=== PATIENT | female | born 1980 | race Caucasian/White ===

== ENCOUNTER 2017-03-12 15:22 | Outpatient (CLI) | payer OTHER ==
[2015-01-02 12:01] VITALS: BMI 21.9
[2017-03-12 15:40] LABS: BASOPHILS # (AUTO) 0.1 K/uL (0-0.2); EOSINOPHILS % (AUTO) 0.4 % (0.0-7.0); HEMATOCRIT 37.8 % (37.0-47.0); HEMOGLOBIN 12.7 g/dl (12.0-16.0); IMMATURE GRANULOCYTE % (AUTO) 0.1 % (0.0-5.0); LYMPHOCYTES # (AUTO) 1.6 K/uL (0.60-3.4); LYMPHOCYTES % (AUTO) 23.2 (10.0-50.0); MEAN CORPUSCULAR HEMOGLOBIN 28.9 pg (27.0-31.0); MEAN CORPUSCULAR HGB CONC 33.6 (31.8-35.4); MEAN CORPUSCULAR VOLUME 86.1 fl (81.0-99.0); MONOCYTES # (AUTO) 0.4 K/uL (0.4-2.0); MONOCYTES % (AUTO) 6.1 (0-10); NEUTROPHILS # (AUTO) 4.6 K/ul (2.0-6.9); NEUTROPHILS % (AUTO) 69.2; PLATELET COUNT 317 10^3/uL (140-440); RED BLOOD COUNT 4.39 10^6/ul (4.20-5.40); WHITE BLOOD COUNT 6.67 K/ul (4.6-10.2)
[2017-03-12 15:59] LABS: ALBUMIN 4.1 g/dL (3.4-5.0); ALBUMIN/GLOBULIN RATIO 1.32; BILIRUBIN,TOTAL 0.39 mg/dL (0.00-1.20); BUN/CREATININE RATIO 13.04; CALCIUM 9.4 mg/dL (8.2-10.2); CREATININE 0.69 mg/dL (0.60-1.30); TOTAL PROTEIN 7.2 g/dL (6.4-8.2)
[2017-03-14 07:43] LABS: CANCER ANTIGEN 27.29 14.6 U/mL (0.0-38.6); CARCINOEMBRYONIC ANTIGEN 2.1 ng/mL (0.0-4.7)
== END 2017-03-12 15:23 | disposition home or self-care (01) ==
LOC: LAB 15:22
PROVIDERS: ATTEND Internal Medicine Hematology & Oncology
DX: Z85.3 Personal history of malignant neoplasm of breast (principal)
CPT/HCPCS: 36415; 80053; 82378; 85025; 86300

== ENCOUNTER 2017-10-22 08:37 | Outpatient (CLI) ==
[2015-01-02 12:01] VITALS: BMI 21.9
[2017-10-22 09:05] LABS: BASOPHILS # (AUTO) 0.1 K/uL (0-0.2); BASOPHILS % (AUTO) 1.7 % (0.0-3.0); EOSINOPHILS # (AUTO) 0.1 K/ul (0.0-0.7); EOSINOPHILS % (AUTO) 1.7 % (0.0-7.0); HEMATOCRIT 36.1 % (37.0-47.0); HEMOGLOBIN 12.2 g/dl (12.0-16.0); IMMATURE GRANULOCYTE % (AUTO) 0.5 % (0.0-5.0); LYMPHOCYTES # (AUTO) 1.7 K/uL (0.60-3.4); LYMPHOCYTES % (AUTO) 28.6 (10.0-50.0); MEAN CORPUSCULAR HEMOGLOBIN 29.5 pg (27.0-31.0); MEAN CORPUSCULAR HGB CONC 33.8 (31.8-35.4); MEAN CORPUSCULAR VOLUME 87.2 fl (81.0-99.0); MONOCYTES # (AUTO) 0.5 K/uL (0.4-2.0); MONOCYTES % (AUTO) 8.6 (0-10); NEUTROPHILS # (AUTO) 3.5 K/ul (2.0-6.9); NEUTROPHILS % (AUTO) 58.9; PLATELET COUNT 299 10^3/uL (140-440); RED BLOOD COUNT 4.14 10^6/ul (4.20-5.40)
[2017-10-22 09:30] LABS: ALBUMIN 3.5 g/dL (3.4-5.0); ALBUMIN/GLOBULIN RATIO 1.13; ANION GAP 11.7; BILIRUBIN,TOTAL 0.2 mg/dL (0.00-1.20); BUN/CREATININE RATIO 15.87; CALCIUM 9.1 mg/dL (8.2-10.2); CREATININE 0.63 mg/dL (0.60-1.30); POTASSIUM 3.7 mmol/L (3.5-5.10); TOTAL PROTEIN 6.6 g/dL (6.4-8.2)
[2017-10-23 06:11] LABS: CANCER ANTIGEN 27.29 11.2 U/mL (0.0-38.6)
[2017-10-23 08:13] LABS: CARCINOEMBRYONIC ANTIGEN 1.8 ng/mL (0.0-4.7)
== END 2017-10-22 08:38 | disposition home or self-care (01) ==
LOC: LAB 08:37
PROVIDERS: ATTEND Internal Medicine Hematology & Oncology
DX: C50.911 Malignant neoplasm of unspecified site of right female breast (principal)
CPT/HCPCS: 36415; 80053; 82378; 85025; 86300

== ENCOUNTER 2018-02-03 08:41 | Emergency (ER) ==
[2018-02-03 08:54] VITALS: BP 120/77; TEMP 99.3; BMI 22.8
[2018-02-03] MEDS ORDERED: ZITHROMAX PO STA (10:04)
[2018-02-03] MEDS ORDERED: TUSSIONEX PO STA (10:04)
[2018-02-03] MEDS ORDERED: PREDNISONE PO STA (10:04)
[2018-02-03] MEDS ORDERED: ROCEPHIN IM STA (10:05)
[2018-02-03] MEDS ORDERED: LIDOCAINE HCL 1% SDV IM STA (10:05)
[2018-02-03] MEDS ORDERED: DUONEB NEB STA (10:05)
--- NOTE | 2018-02-03 10:56 | CT ---
EXAM: Noncontrast CT of the chest HISTORY: Cough, chest pain COMPARISON: None available. TECHNIQUE: Noncontrast CT of the chest FINDINGS: There are minimal left lower lobe patchy ground-glass densities with the most conspicuous opacity coleen suring 5 mm on axial image 48. A few calcified granulomas are seen The lungs are otherwise clear. No pneumothorax or pleural effusion is seen. Heart size is normal. No mediastinal lymphadenopathy is seen. Breast implants are noted. The gallbladder has been removed. There is a 2 mm right renal nonobstruc ting calculus. IMPRESSION: Minimal left lower lobe patchy ground-glass nodularity, favored to be infectious in etiology. Follow -up CT after treatment is recommended to document resolution and exclude ground-glass pulmonary nodul es. Right renal nonobstructing calculus.
--- NOTE | 2018-02-03 11:26 | ED.PDOC ---
General ED Provider: Dr. CORINNA ROSA Chief Complaint: Respiratory Complaint Stated Complaint: flu like symptoms Time Seen by Physician: 08:46 (no resp distress) Mode of Arrival: Walk-In Information Source: Patient Exam Limitations: No limitations Primary Care Provider: STAS BARON Nursing and Triage Documentation Reviewed and Agree: Yes Reviewed sepsis parameters & appropriate labs ordered?: Yes System Inflammatory Response Syndrome: Not Applicable Sepsis Protocol: For patient's 13 years and over: Temp is 96.8 and below OR 101 and greater Pulse >90 BPM Resp >20/minute Acutely Altered Mental Status Are patient's symptoms suggestive of a new infection, such as: -Pneumonia -Skin, Soft Tissue -Endocarditis -UTI -Bone, Joint Infection -Implantable Device -Acute Abdominal Infection -Wound Infection -Meningitis -Blood Stream Catheter Infection -Unknown System Inflammatory Response Syndrome: Not Applicable Respiratory Complaint Exam - Respiratory Complaint/Exam Onset/Duration: 1 week Symptoms Are: Still present Timing: Intermittent Initial Severity: Moderate Current Severity: Mild Location: Nose, Throat, Chest Character: Reports: Non-productive cough Aggravating: Reports: URI Alleviating: Reports: Bronchodilators, Spontaneous resolution Associated Signs and Symptoms: Reports: URI, Nasal congestion Related History: Reports: Similar episode History of Healthcare-Acquired Pneumonia: No Related Surgical History: Reports: None Pulmonary Embolism Risk Factors: None Cardiac Risk Factors: Reports: None Pseudomonas Risk Factors: Reports: None Tuberculosis Risk Factors: Reports: None Status Asthmaticus Risk Factors: Reports: None Home Oxygen Use: No Recent Stress Test: No Recent Echo/LV Function: No Current Antibiotic Use: No Current Asthma Medication Use: No Respiratory Distress: None Inadequate Respiratory Effort: No Dysphagia Present: No Stridor Present: No JVD Present: No Accessory Muscle Use: No Retractions: Not Present Diminished Breath Sounds: No Sinus Tenderness: None Grunting Respirations: No Kussmaul Respirations: No Differential Diagnoses: Pneumonia, Bronchitis, URI, Lower Resp. Infection Review of Systems - Review Of Systems Constitutional: Reports: Malaise Eyes: Reports: No symptoms Ears, Nose, Mouth, Throat: Reports: No symptoms Respiratory: Reports: Cough Cardiac: Reports: No symptoms GI: Reports: No symptoms : Reports: No symptoms Musculoskeletal: Reports: No symptoms Skin: Reports: No symptoms Neurological: Reports: No symptoms Endocrine: Reports: No symptoms Hematologic/Lymphatic: Reports: No symptoms All Other Systems: Reviewed and Negative Past Medical History - Past Medical History Previously Healthy: Yes Endocrine: Reports: None Cardiovascular: Reports: None Respiratory: Reports: None Hematological: Reports: None Gastrointestinal: Reports: None Genitourinary: Reports: None Neuro/Psych: Reports: None Musculoskeletal: Reports: None Cancer: Reports: None Last Menstrual Period: hysterectomy - Surgical History General Surgical History: Reports: None - Family History Family History: Reports: None - Social History Smoking Status: Never smoker Hx Substance Use: No Alcohol Screening: None Physical Exam - Physical Exam Appearance: Ill-appearing Ill-appearing: Mild Pain Distress: Mild Eyes: ROSSANA, EOMI, Conjunctiva clear ENT: Ears normal, Nose normal, Oropharynx normal Respiratory: Rhonchi, Wheezes Cardiovascular: RRR, Pulses normal, No rub, No murmur GI/: Soft, Nontender, No masses, Bowel sounds normal, No Organomegaly Musculoskeletal: Normal strength, ROM intact, No edema, No calf tenderness Skin: Warm, Dry, Normal color Neurological: Sensation intact, Motor intact, Reflexes intact, Cranial nerves intact, Alert, Oriented Psychiatric: Affect appropriate, Mood appropriate Interpretation - Radiology Interpretation Radiology Interpretation By: Radiologist Radiology Results: No acute changes Critical Care Note - Critical Care Note Total Time (mins): 0 Course - Course Hematology/Chemistry: 02/03/18 10:08 02/03/18 10:08 Orders, Labs, Meds: Lab Review 02/03/18 02/03/18 02/03/18 10:08 10:08 10:08 WBC 10.56 H RBC 4.41 Hgb 12.7 Hct 38.2 MCV 86.6 MCH 28.8 MCHC 33.2 RDW Coeff of Sonia 14.7 Plt Count 274 Immature Gran % (Auto) 0.4 Neut % (Auto) 78.4 Lymph % (Auto) 10.5 Osborne % (Auto) 8.2 Eos % (Auto) 1.6 Baso % (Auto) 0.9 Immature Gran # (Auto) 0.0 Neut # (Auto) 8.3 H Lymph # (Auto) 1.1 Osborne # (Auto) 0.9 Eos # (Auto) 0.2 Baso # (Auto) 0.1 Sodium 142 Potassium 3.9 Chloride 106 Carbon Dioxide 26 Anion Gap 13.9 BUN 5 L Creatinine 0.63 Estimated GFR (MDRD) 105.00 BUN/Creatinine Ratio 7.93 Glucose 92 Calcium 9.2 Total Bilirubin 0.2 AST 14 L ALT 14 Alkaline Phosphatase 64 Total Protein 6.8 Albumin 3.8 Globulin 3.0 Albumin/Globulin Ratio 1.27 Serum , Qual Negative Orders Category Date Time Status NEBULIZER TREATMENT Stat CARDIO 02/03/18 10:05 Completed CBC W/ AUTO DIFF Stat LAB 02/03/18 10:08 Completed COMPREHENSIVE METABOLIC PANEL Stat LAB 02/03/18 10:08 Completed FLU A/B MOLECULAR Stat LAB 02/03/18 10:30 Received MOLECULAR GROUP A STREP Stat LAB 02/03/18 10:30 Received SERUM Stat LAB 02/03/18 10:08 Completed Azithromycin [Zithromax] MEDS 02/03/18 10:04 Discontinued 1,000 mg PO ONCE STA Ceftriaxone Sodium [Rocephin] MEDS 02/03/18 10:05 Discontinued 1 gm IM ONCE STA Hydrocodone/Chlorphen Polis [Tussionex] MEDS 02/03/18 10:04 Discontinued 5 ml PO ONCE STA Ipratropium/Albuterol Neb [Duoneb] MEDS 02/03/18 10:05 Discontinued 1 vial NEB ONCE STA Lidocaine HCl/Pf [Lidocaine HCl 1% Sdv] MEDS 02/03/18 10:05 Discontinued 2.1 ml IM ONCE STA Prednisone MEDS 02/03/18 10:04 Discontinued 40 mg PO ONCE STA CT CHEST W/O CONTRAST Stat RADS 02/03/18 10:01 Completed Medications Discontinued Medications Generic Name Dose Route Start Last Admin Trade Name Freq PRN Reason Stop Dose Admin Albuterol/Ipratropium 1 vial 02/03/18 10:05 02/03/18 10:23 Duoneb NEB 02/03/18 10:06 1 vial ONCE STA Administration Azithromycin 1,000 mg 02/03/18 10:04 Zithromax PO 02/03/18 10:05 ONCE STA Ceftriaxone Sodium 1 gm 02/03/18 10:05 Rocephin IM 02/03/18 10:06 ONCE STA Chlorphenir/Hydrocodone Polistirex 5 ml 02/03/18 10:04 02/03/18 11:01 Tussionex PO 02/03/18 10:05 5 ml ONCE STA Administration Lidocaine HCl 2.1 ml 02/03/18 10:05 Lidocaine Hcl 1% Sdv IM 03/11/18 10:06 ONCE STA Prednisone 40 mg 03/11/18 10:04 02/03/18 10:59 Prednisone PO 02/03/18 10:05 40 mg ONCE STA Administration Vital Signs: Temp Pulse Resp BP Pulse Ox 02/03/18 08:42 99.3 F 93 H 20 120/77 100 Departure - Departure Time of Disposition: 11:25 Disposition: HOME SELF-CARE Discharge Problem: Cough, Viral syndrome Condition: Good Pt referred to PMD for follow-up: Yes IPMP verified?: No Additional Instructions: Please call your Family Physician as soon as possible to schedule a follow-up appointment. Allergies/Adverse Reactions: Allergies codeine Adverse Reaction (Verified 02/03/18 08:55) vancomycin Adverse Reaction (Verified 02/03/18 08:55) Home Medications: Ambulatory Orders Alprazolam [Xanax] 0.5 mg PO TID 11/11/14 Dextroamphetamine/Amphetamine [Adderall 15 mg Tablet] 15 mg PO BID 11/11/14 Tamoxifen Citrate 20 mg PO DAILY 11/11/14 Venlafaxine HCl [Effexor] 75 mg PO DAILY 11/11/14
== END 2018-02-03 12:06 | disposition home or self-care (01) ==
LOC: ED 08:41
DX: R05 Cough (principal); B34.9 Viral infection, unspecified
CPT/HCPCS: 36415; 80053; 84703; 85025; 87502; 87651; 94640; 99283

== ENCOUNTER 2018-04-19 09:08 | Outpatient (CLI) | payer OTHER | END 2018-04-19 09:09 | disposition home or self-care (01) | LOC: LAB 09:08 | PROVIDERS: ATTEND Internal Medicine Hematology & Oncology | DX: C50.911 Malignant neoplasm of unspecified site of right female breast (principal) | CPT/HCPCS: 36415; 80053; 82378; 85025; 86300 ==

== ENCOUNTER 2018-12-13 09:00 | Outpatient (RCR) ==
[2018-11-13 10:39] VITALS: BMI 24.4
--- NOTE | 2018-12-09 08:44 | RS.OPPTEV2 ---
Date of Note: 12/06/18 Visit #: 1 Number of visits approved by Insurance: n/a Date of Evaluation: 12/06/18 Payer Source: MEDICARE Surgery Performed?: No Treatment Diagnosis: chronic nonintractable headache History of Condition/Mechanism of Injury:: pt reports that her pain began . pt states had an almost constant headache for 2 1/2 weeks. pt reports no h/ a since 11/25 still with neck discomfort. Prior Level of Function.....Patient was independent with: ADL's, Self Care, Caregiving, Ambulation/Mobility, Community Integration/Access Functional Limitations: Reaching, Pushing, Pulling, Lifting, Carrying Current Subjective/complaints:: pt reports that she has had this happen before with muscle tightness in her neck and headache and came for therapy. pt reports that traction helped last time. Treatment Side (optional): N/A *Precautions: no electrical modalities due to h/o breast cancer. Medical History Medical History: Cancer (breast) Surgical History: Cholecystectomy, Hysterectomy, Mastectomy (bilateral mastectomy with multiple reconstructive surgeries. ) Smoking Status: Never smoker Hx Home Medications: flexeril, adderal, effexor, remeron Patient's Goals: decrease muscle tightness Pain Assessment - Pain Description Pain Location: cervical spine and headache with pain in L upper trap and medial scapula. Current Pain Intensity: 1-2 at rest Functional Outcome Measure Other: pt with difficulty answering functional index questions. pt with constant talking. - G Codes & Severity Modifier G Codes & Modifier: n/a Source of G Code score: n/a Observation - Observation Posture: Forward Head, Rounded Shoulders Handedness: Right Gait - Gait Pattern General Gait Pattern Observation: No Deviations/Normal General Range of Motion: BUE WFL's. BLE WFL's Muscle Strength: BUE 5/5. BLE 5/5 - ROM Cervical Spine Range of Motion Limitations: Soft Tissue Tightness, Muscle Weakness, Pain Comments: cervical ROM WFL's with increased pain with flex. - Strength Cervical Extension: 4 Good Cervical Flexion: 4- Good- Cervical Lateral Flexion: 4- Good- Cervical Rotation: 4- Good- - Special Tests Foraminal Distraction: Negative Foraminal Compression: Negative Left, Negative Right Palpation Palpation Findings: Tenderness, Trigger Point, Muscle Guarding Comments:: pt with tenderness and trigger points noted in L upper trap and L medial scapula Sensation - Sensation Right Upper Extremity: Impaired (n/t RUE since axillary dissection) Left Upper Extremity: Intact/Normal Right Lower Extremity: Intact/Normal Left Lower Extremity: Intact/Normal Balance - Sitting Balance Static Sitting Balance: Normal Dynamic Sitting Balance: Normal - Standing Balance Static Standing Balance: Normal Dynamic Standing Balance: Normal - Traction Treatment Method: Mechanical Patient Position: Supine Amount of Force Applied: 12lbs Hold Time: 30secs Rest Time: 10secs Duration of treatment: 12 mins Interventions - Exercise/Activities/Manual Therapy Exercises/Activities: pt performed cervical retraction x 5, upper trap and levator stretch, scapular retraction Manual Therapy: n/a HOME EXERCISE PROGRAM: pt given written HEP including cervical retraction, corner stretch, upper trap stretch, scapular retraction - Charges Timed Code Treatment Minutes: 58 Total Treatment Time: 64 Procedures billed for this date of service:: eval low ,mechanical traction EVALUATION COMPLEXITY LEVEL EVALUATION COMPLEXITY LEVEL: HISTORY: Low (breast CA, cervical pain), EXAM OF BODY SYSTEMS: Low (pain, muscle tightness, trigger points, MCCARTNEY), CLINICAL PRESENTATION: Medium, CLINICAL DECISION MAKING: Low Assessment Assessment: pt presents with discomfort in cervical spine in area of L upper trap and L medial scapula. pt with trigger points noted in L upper trap and medial scapula with H/A associated. pt also with decreased cervical lordosis and forward head posture. Patient Education: Home Exercise Program, Education of Plan of Care Rehab Potential: Good Short Term Goals Goal #1: pt independent with initial HEP. Goal to be met by: 12/20/18 Goal #2: pt with decreased tenderness to L upper trap Goal to be met by: 12/20/18 Goal #3: pt to have no report of pain with cervical flex. Goal to be met by: 12/20/18 Chassis Mechanic Goals Goal #1: pt with no reports of H/A associated with cervical tightness Goal to be met by: 01/03/19 Goal #2: pt with improved flexibility L upper trap Goal to be met by: 01/03/19 Goal #3: No trigger points noted in L upper trap and medial scapula Goal to be met by: 01/03/19 Plan - Treatment to be Provided Procedures: Therapeutic Exercises, Manual Therapy, Massage, Patient Education Modalities: Cryotherapy, Hot Packs, Mechanical Traction - Treatment Plan Frequency: 2-3x a week Duration: 4 weeks Dates of Senior Care Goals: 01/03/19 Expiration date of current Insurance Approval:: n/a - Treatment Code (1) Chronic nonintractable headache Code(s): R51 - HEADACHE Qualifiers: Headache type: unspecified Qualified Code(s): R51 - Headache (2) Cervical pain Code(s): M54.2 - CERVICALGIA (3) Muscle tightness Code(s): M62.89 - OTHER SPECIFIED DISORDERS OF MUSCLE
--- NOTE | 2018-12-09 09:57 | RS.OPPTDN ---
Subjective Date of Note: 12/09/18 Visit #: 2 Number of visits approved by Insurance: NA Date of Evaluation: 12/06/18 Payer Source: MEDICARE Treatment Diagnosis: chronic nonintractable headache Current Subjective/complaints:: Patient reports tightness in the cervical region ,but no pain today. *Precautions: no electrical modalities due to h/o breast cancer. Pain Assessment - Pain Description Pain Location: cervicakl/UT's Pain Description: Tightness Current Pain Intensity: 0 - Heat/Cryotherapy Treatment: Hot Pack (20 mins. prior toexercise and traction) - Traction Treatment Method: Mechanical, Intermittent, Cervical Patient Position: Supine Amount of Force Applied: 13 Hold Time: 30 secs. Rest Time: 5 secs. Duration of treatment: 15 mins. Interventions - Exercise/Activities/Manual Therapy Exercises/Activities: 15 mins. total for chin tucks ,cervical retraction,UT stretch,lateral flexion,instruction for posture /body mechanics. Total minutes of Exercise: 15 Manual Therapy: n/a Total minutes of Manual Therapy: 0 HOME EXERCISE PROGRAM: pt given written HEP including cervical retraction, corner stretch, upper trap stretch, scapular retraction - Charges Timed Code Treatment Minutes: 30 Total Treatment Time: 50 Procedures billed for this date of service:: hp,ex,traction Assessment: Patient has good understanding of cervical/postural exercises,has stretch discomfort only ,no pain during the exercises.She reports the traction gives her relief.She does present with forward head posture at rest.We discussed making her home environment adaptable to whatever activity she is doing. Patient Education: Education of diagnosis, Body/Joint mechanics, Home Exercise Program, Home Safety, Activity Modification, Education of Plan of Care Patient demonstrates compliance with HEP?: Yes Short Term Goals Goal #1: pt independent with initial HEP. Goal to be met by: 12/20/18 Progress towards Goal:: Progressing Goal #2: pt with decreased tenderness to L upper trap Goal to be met by: 12/20/18 Goal #3: pt to have no report of pain with cervical flex. Goal to be met by: 12/20/18 Progress towards Goal:: Progressing Unemployment Inspector Goals Goal #1: pt with no reports of H/A associated with cervical tightness Goal to be met by: 01/03/19 Goal #2: pt with improved flexibility L upper trap Goal to be met by: 01/03/19 Goal #3: No trigger points noted in L upper trap and medial scapula Goal to be met by: 01/03/19 Plan Dates of Senior Care Goals: 01/03/19 Expiration date of current Insurance Approval:: NA PLAN: Cont. skilled PT to return patient to PLOF,no cervical pain and normal cervical ROM.
--- NOTE | 2018-12-13 09:56 | RS.OPPTDN ---
Subjective Date of Note: 12/13/18 Visit #: 3 Number of visits approved by Insurance: NA Date of Evaluation: 12/06/18 Payer Source: MEDICARE Treatment Diagnosis: chronic nonintractable headache Current Subjective/complaints:: Reports the cervical area is tight with dull ache that is always present ,but no elevated pain today.She reports doing her stretches several times per day. *Precautions: no electrical modalities due to h/o breast cancer. Pain Assessment - Pain Description Pain Location: cervical Pain Description: Dull, Aching, Chronic Current Pain Intensity: 0 - Heat/Cryotherapy Treatment: Hot Pack (20 mins. prior to ex and traction) - Traction Treatment Method: Mechanical, Intermittent, Cervical Patient Position: Supine Amount of Force Applied: 15 Hold Time: 30 secs. Rest Time: 5 seccs. Duration of treatment: 20 mins. Traction Treatment Comment: Tolerates well. Interventions - Exercise/Activities/Manual Therapy Exercises/Activities: Reviewed HEP of chin tucks ,cervical retraction,UT stretch ,lateral flexion,instruction for posture /body mechanics. Total minutes of Exercise: 0 Manual Therapy: n/a HOME EXERCISE PROGRAM: pt given written HEP including cervical retraction, corner stretch, upper trap stretch, scapular retraction - Charges Timed Code Treatment Minutes: 20 Total Treatment Time: 40 Procedures billed for this date of service:: hp,traction Assessment: Patient progressing ,reports mostly stiffness today,no headache or elevation of cervical pain during treatment. Patient Education: Education of diagnosis, Body/Joint mechanics, Home Exercise Program, Home Safety, Activity Modification, Education of Plan of Care Patient demonstrates compliance with HEP?: Yes Short Term Goals Goal #1: pt independent with initial HEP. Goal to be met by: 12/20/18 Progress towards Goal:: Partially Met (Has good understanding of cervical stretches ,will focus more on posture when sitting) Goal #2: pt with decreased tenderness to L upper trap Goal to be met by: 12/20/18 Progress towards Goal:: Progressing Goal #3: pt to have no report of pain with cervical flex. Goal to be met by: 12/20/18 Progress towards Goal:: Progressing Director Of Respiratory Therapy Goals Goal #1: pt with no reports of H/A associated with cervical tightness Goal to be met by: 01/03/19 Progress towards goal: Progressing (No headache today ,but not yet consistent) Goal #2: pt with improved flexibility L upper trap Goal to be met by: 01/03/19 Goal #3: No trigger points noted in L upper trap and medial scapula Goal to be met by: 01/03/19 Plan Dates of Director Of Respiratory Therapy Goals: 01/03/19 Expiration date of current Insurance Approval:: NA PLAN: Cont. skilled PT to reduce /eliminate hedaches and cervical pain.
--- NOTE | 2018-12-17 08:54 | RS.CXNS ---
Date of scheduled appointment: 12/17/18 Type: Cancel Reason for Cancel/NS: Patient called and cancelled both appts. this week,sick today .Patient also states that she feels that she will probably be sicker on Sunday.
--- NOTE | 2018-12-30 10:12 | RS.OPPTDC ---
Date of Discharge: 12/13/18 Date of Evaluation: 12/06/18 Number of Visits: 3 Treatment Diagnosis: chronic nonintractable headache Current Level of Function: pt reports she is doing stretches several times a day. pt with no reports of pain on last 2 visits. pt continues with muscle tightness as well as some slight discomfort with ex. Current Complaints/Gains: pt contacted via phone and pt requests to be DC. Functional Outcome Measure - G Codes & Severity Modifier G Codes & Modifier: n/a Source of G Code score: n/a Observation - Observation Posture: Forward Head, Rounded Shoulders Handedness: Right Gait - Gait Pattern General Gait Pattern Observation: No Deviations/Normal Interventions - Exercise/Activities/Manual Therapy Exercises/Activities: Reviewed HEP of chin tucks ,cervical retraction,UT stretch ,lateral flexion,instruction for posture /body mechanics. Manual Therapy: n/a HOME EXERCISE PROGRAM: pt given written HEP including cervical retraction, corner stretch, upper trap stretch, scapular retraction - Charges Timed Code Treatment Minutes: n/a Total Treatment Time: n/a Procedures billed for this date of service:: n/a Assessment Assessment: pt progressing toward goals. pt did not meet goals due to pt requests to DC PT. pt had reported no pain on last 2 visits. Patient Education: Home Exercise Program, Education of Plan of Care Rehab Potential: Good Short Term Goals Goal #1: pt independent with initial HEP. Goal to be met by: 12/20/18 Progress towards Goal:: Partially Met (Has good understanding of cervical stretches ,will focus more on posture when sitting) Goal #2: pt with decreased tenderness to L upper trap Goal to be met by: 12/20/18 Progress towards Goal:: Progressing Goal #3: pt to have no report of pain with cervical flex. Goal to be met by: 12/20/18 Progress towards Goal:: Progressing Bid Manager Goals Goal #1: pt with no reports of H/A associated with cervical tightness Goal to be met by: 01/03/19 Progress towards goal: Progressing (No headache today ,but not yet consistent) Goal #2: pt with improved flexibility L upper trap Goal to be met by: 01/03/19 Goal #3: No trigger points noted in L upper trap and medial scapula Goal to be met by: 01/03/19 Plan Reason for Discharge:: pt pt request
== END 2018-12-26 23:59 ==
PROVIDERS: ATTEND Family Medicine
DX: R51 Headache (principal)

== ENCOUNTER 2019-03-13 08:07 | Emergency (ER) ==
[2019-03-13 08:21] VITALS: BP 120/81; TEMP 96.1; BMI 23.9
--- NOTE | 2019-03-13 08:35 | ED.PDOC ---
General ED Provider: Dr. MACKENZIE ADORNO Chief Complaint: Non-specific Complaint Stated Complaint: Vaginal burning this AM; no prior related history. Had sexual intercourse recently and a bubble bath also. Time Seen by Physician: 08:31 Mode of Arrival: Walk-In Information Source: Patient Primary Care Provider: STAS BARON Nursing and Triage Documentation Reviewed and Agree: Yes Does patient meet sepsis criteria?: No System Inflammatory Response Syndrome: Not Applicable Sepsis Protocol: For patient's 13 years and over: Temp is 96.8 and below OR 101 and greater Pulse >90 BPM Resp >20/minute Acutely Altered Mental Status Are patient's symptoms suggestive of a new infection, such as: -Pneumonia -Skin, Soft Tissue -Endocarditis -UTI -Bone, Joint Infection -Implantable Device -Acute Abdominal Infection -Wound Infection -Meningitis -Blood Stream Catheter Infection -Unknown Review of Systems - Review Of Systems Constitutional: Reports: Other (Pain making her sick/nausea) Respiratory: Reports: No symptoms Cardiac: Reports: No symptoms GI: Reports: No symptoms, Nausea. Denies: Abdomen distended, Abdominal pain, Vomiting : Reports: Burning, Other (Intense vaginal pain) Neurological: Reports: No symptoms All Other Systems: Reviewed and Negative Past Medical History - Past Medical History Previously Healthy: Yes Endocrine: Reports: None Cardiovascular: Reports: None Respiratory: Reports: None Hematological: Reports: None Gastrointestinal: Reports: None Genitourinary: Reports: None Neuro/Psych: Reports: None Musculoskeletal: Reports: None Cancer: Reports: None Last Menstrual Period: unknown - Surgical History General Surgical History: Reports: None - Family History Family History: Reports: None - Social History Smoking Status: Never smoker Hx Substance Use: No Alcohol Screening: None Physical Exam - Physical Exam Appearance: Well-appearing Ill-appearing: None Pain Distress: Moderate (Vaginal area) Eyes: ROSSANA, EOMI ENT: Oropharynx normal Neck: Supple Respiratory: Airway patent, Breath sounds clear, Breath sounds equal, Respirations nonlabored Cardiovascular: RRR, Pulses normal (Bilat radial ) GI/: Soft, Nontender, No masses Musculoskeletal: Normal strength, ROM intact, No edema Skin: Warm, Dry, Normal color Neurological: Sensation intact, Motor intact, Alert, Oriented Psychiatric: Affect appropriate, Mood appropriate Critical Care Note - Critical Care Note Total Time (mins): 15 Course - Course Orders, Labs, Meds: Lab Review 03/13/19 08:59 Urine Color Yellow Urine Clarity Slightly Urine pH 6.0 Ur Specific [place] >=1.030 Urine Protein Negative Urine Glucose (UA) Negative Urine Ketones 2+ Urine Blood Trace-lysed Urine Nitrite Negative Urine Bilirubin 1+ Urine Urobilinogen 0.2 Ur Leukocyte Esterase 1+ Urine Microscopic WBC 20-30 Ur Squamous Epith Cells 2-5 Urine Bacteria Trace Urine Mucus 1+ Orders Category Date Time Status URINALYSIS C & S IF INDICATED Stat LAB 03/13/19 08:59 Received Vital Signs: Temp Pulse Resp BP Pulse Ox 03/13/19 08:17 96.1 F L 75 20 120/81 98 Departure - Departure Time of Disposition: 09:51 Disposition: HOME SELF-CARE Discharge Problem: Urinary tract infection Qualifiers: Urinary tract infection type: acute cystitis Hematuria presence: without hematuria Qualified Code(s): N30.00 - Acute cystitis without hematuria Instructions: Urinary Tract Infection in Women (ED) Condition: Good Pt referred to PMD for follow-up: Yes (Follow up with primary care; call for appointment) IPMP verified?: No (N/A) Additional Instructions: Take medications as prescribed; urine culture will determine if the antiibiotic started is adequate for full treatment. You should hear results of the culture in two days if a change of medication is indicated. You may call to verify that the culture did not show any needed change in the antibiotic. Follow up with primary care. If not better in one week or if markedly worsening in the next 24 hours or develope back pain and/or fever of 101 or greater return to ER. Prescriptions: Fluconazole [Diflucan] 150 mg PO DAILY #7 tablet Sulfamethoxazole/Trimethoprim [Bactrim Ds Tablet] 1 each PO BID #20 tablet Allergies/Adverse Reactions: Allergies codeine Adverse Reaction (Verified 03/13/19 08:21) vancomycin Adverse Reaction (Verified 03/13/19 08:21) Home Medications: Ambulatory Orders Alprazolam [Xanax] 0.5 mg PO TID 11/11/14 Dextroamphetamine/Amphetamine [Adderall 15 mg Tablet] 15 mg PO BID 11/11/14 Tamoxifen Citrate 20 mg PO DAILY 11/11/14 Mirtazapine [Remeron] 15 mg PO BEDTIME 11/13/18 Fluconazole [Diflucan] 150 mg PO DAILY #7 tablet 03/13/19 Sulfamethoxazole/Trimethoprim [Bactrim Ds Tablet] 1 each PO BID #20 tablet 03/13
== END 2019-03-13 10:08 | disposition home or self-care (01) ==
LOC: ED 08:07
DX: N30.00 Acute cystitis without hematuria (principal)
CPT/HCPCS: 81001; 87086; 87186; 99283

== ENCOUNTER 2019-03-23 09:18 | Emergency (ER) | payer OTHER ==
[2019-03-23 09:25] VITALS: BP 119/84; TEMP 98.6; BMI 22.9
[2019-03-23] MEDS ORDERED: LIDOCAINE HCL 1% SDV IM STA (10:22)
[2019-03-23] MEDS ORDERED: ROCEPHIN IM STA (10:22)
--- NOTE | 2019-03-23 10:29 | ED.PDOC ---
General ED Provider: Dr. CORINNA ROSA Chief Complaint: Urinary Problem Stated Complaint: dysuria has finished a regiment of bractrim dysuria not resolved . urine culture postive for Ecoli Time Seen by Physician: 10:00 (MARCH SNYDER PRESENT) Mode of Arrival: Walk-In Information Source: Patient Exam Limitations: No limitations Primary Care Provider: STAS BARON Nursing and Triage Documentation Reviewed and Agree: Yes Does patient meet sepsis criteria?: No System Inflammatory Response Syndrome: Not Applicable Sepsis Protocol: For patient's 13 years and over: Temp is 96.8 and below OR 101 and greater Pulse >90 BPM Resp >20/minute Acutely Altered Mental Status Are patient's symptoms suggestive of a new infection, such as: -Pneumonia -Skin, Soft Tissue -Endocarditis -UTI -Bone, Joint Infection -Implantable Device -Acute Abdominal Infection -Wound Infection -Meningitis -Blood Stream Catheter Infection -Unknown Complaint Exam - Complaint/Exam Patient Complains of: Reports: Dysuria Onset/Duration: 1WEEK Symptoms Are: Still present Timing: Intermittent Initial Severity: Mild Current Severity: Mild Location of Pain: Reports: Suprapubic Character: Reports: Burning Aggravating: Reports: Urination Alleviating: Reports: None Associated Signs and Symptoms: Reports: Dysuria. Denies: Diaphoresis, Back pain , Fever, Hematuria, Constipation, Blood in stool, Rectal pain, Appetite change, Nausea, Vomiting, Decreased urine output, Increased urine frequency, Increased thirst, Decreased activity, Lethargy, Abdominal Pain, Bubble bath use, Vaginal bleeding, Vaginal discharge, Genital swelling, Genital blisters, Retained foreign body Ectopic Risk Factors: Reports: None Ovarian Torsion Risk Factors: Reports: None Surgical Obstruction Risk Factors: Reports: None RH Status: Unknown Related Surgical History: Reports: None Abdominal Findings: Present: None Differential Diagnoses: UTI Review of Systems - Review Of Systems Constitutional: Reports: No symptoms Eyes: Reports: No symptoms Ears, Nose, Mouth, Throat: Reports: No symptoms Respiratory: Reports: No symptoms Cardiac: Reports: No symptoms GI: Reports: No symptoms : Reports: Dysuria Musculoskeletal: Reports: No symptoms Skin: Reports: No symptoms Neurological: Reports: No symptoms Endocrine: Reports: No symptoms Hematologic/Lymphatic: Reports: No symptoms All Other Systems: Reviewed and Negative Past Medical History - Past Medical History Previously Healthy: Yes Endocrine: Reports: None Cardiovascular: Reports: None Respiratory: Reports: None Hematological: Reports: None Gastrointestinal: Reports: None Genitourinary: Reports: None Neuro/Psych: Reports: None Musculoskeletal: Reports: None Cancer: Reports: None Last Menstrual Period: hysterectomy - Surgical History General Surgical History: Reports: None - Family History Family History: Reports: None - Social History Smoking Status: Never smoker Hx Substance Use: No Alcohol Screening: None Physical Exam - Physical Exam Appearance: Well-appearing, No pain distress, Well-nourished Eyes: ROSSANA, EOMI, Conjunctiva clear ENT: Ears normal, Nose normal, Oropharynx normal Respiratory: Airway patent, Breath sounds clear, Breath sounds equal, Respirations nonlabored Cardiovascular: RRR, Pulses normal, No rub, No murmur GI/: Soft, Nontender, No masses, Bowel sounds normal, No Organomegaly Musculoskeletal: Normal strength, ROM intact, No edema, No calf tenderness Skin: Warm, Dry, Normal color Neurological: Sensation intact, Motor intact, Reflexes intact, Cranial nerves intact, Alert, Oriented Psychiatric: Affect appropriate, Mood appropriate Critical Care Note - Critical Care Note Total Time (mins): 0 Course - Course Orders, Labs, Meds: Lab Review 03/23/19 09:35 Urine Color [place] Urine Clarity Clear Urine pH 6.5 Ur Specific [place] >=1.030 Urine Protein 1+ Urine Glucose (UA) Trace Urine Ketones Trace Urine Blood Negative Urine Nitrite Positive Urine Bilirubin 1+ Urine Urobilinogen 1.0 Ur Leukocyte Esterase Negative Urine Microscopic WBC 2-5 Ur Squamous Epith Cells Not present Urine Bacteria 1+ Hyaline Casts 2-5 Urine Mucus 1+ Orders Category Date Time Status URINALYSIS C & S IF INDICATED Stat LAB 03/23/19 09:35 Completed URINE CULTURE Stat LAB 03/23/19 09:35 Received Ceftriaxone Sodium [Rocephin] MEDS 03/23/19 10:22 Stat 1 gm IM ONCE STA Lidocaine HCl/Pf [Lidocaine HCl 1% Sdv] MEDS 03/23/19 10:22 Stat 2.1 ml IM ONCE STA Medications Discontinued Medications Generic Name Dose Route Start Last Admin Trade Name Freq PRN Reason Stop Dose Admin Ceftriaxone Sodium 1 gm 03/23/19 10:22 Rocephin IM 03/23/19 10:23 ONCE STA Lidocaine HCl 2.1 ml 03/23/19 10:22 Lidocaine Hcl 1% Sdv IM 03/23/19 10:23 ONCE STA Vital Signs: Temp Pulse Resp BP Pulse Ox 03/23/19 09:19 98.6 F 107 H 20 119/84 97 Departure - Departure Time of Disposition: 10:30 Disposition: HOME SELF-CARE Discharge Problem: Urinary symptoms, Urinary tract infectious disease Instructions: Urinary Tract Infection in Women (ED), Dysuria (ED) Condition: Good Pt referred to PMD for follow-up: Yes IPMP verified?: No Additional Instructions: Please call your Family Physician as soon as possible to schedule a follow-up appointment. Allergies/Adverse Reactions: Allergies codeine Adverse Reaction (Verified 03/23/19 09:27) vancomycin Adverse Reaction (Verified 03/23/19 09:27) Home Medications: Ambulatory Orders Alprazolam [Xanax] 0.5 mg PO TID 11/11/14 Dextroamphetamine/Amphetamine [Adderall 15 mg Tablet] 15 mg PO BID 11/11/14 Tamoxifen Citrate 20 mg PO DAILY 11/11/14 Mirtazapine [Remeron] 15 mg PO BEDTIME 11/13/18
== END 2019-03-23 10:58 | disposition home or self-care (01) ==
LOC: ED 09:30
DX: N39.0 Urinary tract infection, site not specified (principal); Z87.440 Personal history of urinary (tract) infections
CPT/HCPCS: 81001; 87086; 96372; 99283

== ENCOUNTER 2019-03-30 10:53 | Emergency (ER) | payer OTHER ==
[2019-03-30 11:02] VITALS: BP 121/79; TEMP 99.3; BMI 22.3
--- NOTE | 2019-03-30 11:48 | ED.PDOC ---
General ED Provider: Dr. RONDA MCKEON Chief Complaint: Urinary Problem Stated Complaint: Urethral burning. Recently treated on several occasions for UTI. States problem seemed to have started after taking a bath. Most recently was prescribed Cipro for 4 days and made improvement but then had recurret symptoms. Denies Vaginal Discharge Time Seen by Physician: 11:20 Mode of Arrival: Walk-In Information Source: Patient Exam Limitations: No limitations Primary Care Provider: STAS LISA Nursing and Triage Documentation Reviewed and Agree: Yes Does patient meet sepsis criteria?: No System Inflammatory Response Syndrome: Not Applicable Sepsis Protocol: For patient's 13 years and over: Temp is 96.8 and below OR 101 and greater Pulse >90 BPM Resp >20/minute Acutely Altered Mental Status Are patient's symptoms suggestive of a new infection, such as: -Pneumonia -Skin, Soft Tissue -Endocarditis -UTI -Bone, Joint Infection -Implantable Device -Acute Abdominal Infection -Wound Infection -Meningitis -Blood Stream Catheter Infection -Unknown Complaint Exam - UTI Female Complaint/Exam Patient Complains of: Reports: Painful urination Onset/Duration: 1 wk-(several occurances) Symptoms Are: Still present Timing: Intermittent Initial Severity: Mild Current Severity: Moderate Location of Pain: Reports: None Associated Signs and Symptoms: Denies: Fever, Chills, Flank pain, Dyspareunia, Vaginal discharge Related History: Reports: New sexual partner, Bubble bath use Related Surgical History: Reports: None, Hysterectomy CVA Tenderness: No Suprapubic Tenderness: Yes Differential Diagnoses: Bladder Dysfunction, Other Review of Systems - Review Of Systems Constitutional: Reports: No symptoms Eyes: Reports: No symptoms Ears, Nose, Mouth, Throat: Reports: No symptoms Respiratory: Reports: No symptoms Cardiac: Reports: No symptoms GI: Reports: No symptoms : Reports: No symptoms Musculoskeletal: Reports: No symptoms Skin: Reports: No symptoms Neurological: Reports: No symptoms Endocrine: Reports: No symptoms Hematologic/Lymphatic: Reports: No symptoms All Other Systems: Reviewed and Negative Past Medical History - Past Medical History Previously Healthy: Yes Endocrine: Reports: None Cardiovascular: Reports: None Respiratory: Reports: None Hematological: Reports: None Gastrointestinal: Reports: None Genitourinary: Reports: None Neuro/Psych: Reports: None Musculoskeletal: Reports: None Cancer: Reports: None Last Menstrual Period: na - Surgical History General Surgical History: Reports: None, Unknown (Bilat mastectomy) - Family History Family History: Reports: None - Social History Smoking Status: Former smoker Hx Substance Use: No Alcohol Screening: Occasionally - Immunizations Tetanus Shot up to Date: No Physical Exam - Physical Exam Appearance: Well-appearing, No pain distress, Well-nourished Eyes: ROSSANA, EOMI, Conjunctiva clear ENT: Ears normal, Nose normal, Oropharynx normal Respiratory: Airway patent, Breath sounds clear, Breath sounds equal, Respirations nonlabored Cardiovascular: RRR, Pulses normal, No rub, No murmur GI/: Soft, No masses, Bowel sounds normal, No Organomegaly, Tender (minimal suprapubic) Musculoskeletal: Normal strength, ROM intact, No edema, No calf tenderness Skin: Warm, Dry, Normal color Neurological: Sensation intact, Motor intact, Reflexes intact, Cranial nerves intact, Alert, Oriented Psychiatric: Affect appropriate, Mood appropriate Critical Care Note - Critical Care Note Total Time (mins): 0 Course - Course Orders, Labs, Meds: Lab Review 03/30/19 11:05 Urine Color Yellow Urine Clarity Clear Urine pH 7.0 Ur Specific [place] 1.020 Urine Protein Negative Urine Glucose (UA) Negative Urine Ketones Negative Urine Blood Negative Urine Nitrite Positive Urine Bilirubin Negative Urine Urobilinogen 0.2 Ur Leukocyte Esterase Negative Urine Microscopic RBC 0-2 Urine Microscopic WBC 0-2 Ur Squamous Epith Cells 0-2 Amorphous Sediment Trace Urine Bacteria Trace Urine Mucus 1+ Orders Category Date Time Status URINALYSIS C & S IF INDICATED Stat LAB 03/30/19 11:05 Completed Vital Signs: Temp Pulse Resp BP Pulse Ox 03/30/19 10:54 99.3 F 96 H 16 121/79 98 Departure - Departure Time of Disposition: 12:35 Disposition: HOME SELF-CARE Discharge Problem: UTI (urinary tract infection), Urinary symptoms, Urethritis, nonspecific Instructions: Urinary Tract Infection in Women (ED) Condition: Good Pt referred to PMD for follow-up: Yes (See Dr Lisa in 7-10 days) IPMP verified?: No Additional Instructions: Force oral clear liquids Cranberry juice Consume 6-8 oz daily No baths with additives to water Compliance with all meds Prescriptions: Azithromycin [Zithromax] 500 mg PO BID 1 Days #2 tablet Nitrofurantoin Monohyd/M-Cryst [Macrobid] 100 mg PO BID #20 capsule Allergies/Adverse Reactions: Allergies codeine Adverse Reaction (Verified 03/30/19 11:03) vancomycin Adverse Reaction (Verified 03/30/19 11:03) Home Medications: Ambulatory Orders Alprazolam [Xanax] 0.5 mg PO TID 11/11/14 Dextroamphetamine/Amphetamine [Adderall 15 mg Tablet] 15 mg PO BID 11/11/14 Mirtazapine [Remeron] 15 mg PO BEDTIME 11/13/18 Azithromycin [Zithromax] 500 mg PO BID 1 Days #2 tablet 03/30/19 Nitrofurantoin Monohyd/M-Cryst [Macrobid] 100 mg PO BID #20 capsule 03/30/19 Disposition Discussed With: Patient Additional Information: States she no longer takes Tamoxifen
== END 2019-03-30 13:07 | disposition home or self-care (01) ==
LOC: ED 10:53
DX: N39.0 Urinary tract infection, site not specified (principal); N34.2 Other urethritis; Z87.440 Personal history of urinary (tract) infections
CPT/HCPCS: 81001; 99283